=== PATIENT | male | born 1935 | race African-American/Black ===

== ENCOUNTER 2016-10-22 13:41 | Emergency (ER) | payer OTHER ==
[~2016-10-22] VITALS: Ht 172.7 cm; Wt 70.0 kg
[2016-10-22 15:41] LABS: BASOPHILS % 0.5 % (0.0-2.0); EOSINOPHILS % 2.5 % (0.0-5.0); HEMOGLOBIN. 14.5 g/dL (14.0-18.0); LYMPHOCYTES % 26.2 % (20.0-50.0); MEAN CORPUSCULAR HEMOGLOBIN 29.2 pg (28.0-32.0); MEAN CORPUSCULAR VOLUME 86.4 fL (80.0-94.0); MEAN PLATELET VOLUME 8.7 fl (7.4-10.4); MONOCYTES % 9.3 % (2.0-8.0); NEUTROPHILS % 61.5 % (40.0-76.0); PLATELET 187 x1000/uL (130-400); RED BLOOD CELL COUNT 4.98 mill/uL (4.7-6.1); RED CELL DISTRIBUTION WIDTH 13.9 % (11.6-14.6)
[2016-10-22 15:50] LABS: CARBON DIOXIDE 24 mEq/L (21-32); CHLORIDE 104 mEq/L (98-107)
[2016-10-22 15:55] LABS: TROPONIN I < 0.02 ng/mL (0.00-0.04)
[2016-10-22 20:06] VITALS: BP 131/75
== END 2016-10-22 20:12 | disposition left against medical advice (07) ==
LOC: ER 14:37
DX: R53.1 Weakness (principal); R35.0 Frequency of micturition; I10 Essential (primary) hypertension; Z79.82 Long term (current) use of aspirin
CPT/HCPCS: 36415; 71010; 80048; 82962; 84484; 85025; 93005; 99285